=== PATIENT | female | born 1990 ===

== ENCOUNTER 2017-10-23 23:31 | Emergency (ER) | payer BC, OTHER ==
[2017-10-24 00:05] VITALS: BP 120/72; PULSE 86; RESP 16; TEMP 97.3; O2SAT 96
--- NOTE | 2017-10-24 00:25 | EDPHY ---
H & P Time Seen by Provider: 10/23/17 23:54 HPI/ROS: CHIEF COMPLAINT: Pain at rectum with lump HISTORY OF PRESENT ILLNESS: For the last 4 days she noted a mild progressive pain to the right side of the rectum as well as a small area of swelling in the immediate rectal anus. There has been no bleeding. She has longstanding problem with constipation but has noted no bowel movement last 4 days as some comfortable. There has been no fluid drainage or diarrhea. She does recall approximately 4 years ago have an episode of rectal pain diagnosis as a fissure. Once the head settle down it actually never left her. She has had perpetual daily rectal pain without any change in her bowel habit, though constipated, along with no discharge or drainage. She has yet to have a visit with a pelt inspector for this. REVIEW OF SYSTEMS: Constitutional: No weight loss or weight gain. No change in appetite Gastrointestinal: No vomiting, no abdominal pain. There has been no icterus or upper abdominal pain. No diarrhea. Genitourinary: No dysuria frequency. Smoking Status: Never smoked Physical Exam: General Appearance: Alert, no distress. Afebrile. Normal phonation. No respiratory distress. Eyes: Pupils equal and round no pallor or injection. No icterus Abdomen: Soft mild diffusely tender however no hepatic tenderness nor hepatomegaly. While pressing the abdomen there is no increased sensation of pressure or pain at the rectum. She notes that the feels tender as she has not had a bowel movement for several days Rectal: There is a 2 cm external hemorrhoid that is not pedunculated. There is particular tenderness and some slight firmness to this however, there is no breakdown of skin or discharge or bleeding. There is no surrounding erythema or tenderness. Skin: Warm and dry, no rashes. Constitutional: Initial Vital Signs Temperature (C) 36.3 C 10/23/17 23:43 Heart Rate 86 10/23/17 23:43 Respiratory Rate 16 10/23/17 23:43 Blood Pressure 120/72 10/23/17 23:43 O2 Sat (%) 96 10/23/17 23:43 O2 Delivery Mode Room Air Allergies/Adverse Reactions: No Known Allergies Allergy (Verified 02/22/13 11:03) Home Medications: Medication Instructions Recorded Hydrocortisone Acetate [Anucort-Hc] 25 mg RC BID #28 supp.rect 10/24/17 Polyethylene Glycol 3350 [Miralax 17 gm PO DAILY #45 pkt 10/24/17 17 gm (*)] Medical Decision Making ED Course/Re-evaluation: She will be stopping at the drugstore tomorrow to picker tender some the Anusol cream that we prescribed. Also, shows to get started on some MiraLax. Lengthy discussion regarding the softeners verses stimulants, and the appropriate use of the former. 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 It is time and best for her to see a pelt inspector get official consult for management. Differential Diagnosis: Diagnostic considerations include, but are not limited to, the following: Portal hypertension, liver disease, bleeding hemorrhoids, thrombosed hemorrhoids , proctodynia Departure - Departure Disposition: Home, Routine, Self-Care Clinical Impression: Hemorrhoid thrombosis Condition: Good Additional Instructions: Begin MiraLax twice daily until your stools are somewhat runny. Then you may take it once daily for the rest of the month. Time to contact a pelt inspector, see referral. Of course, make sure to go through your insurance network. Anusol HC cream topically apply for 2 weeks twice daily Prescriptions: Hydrocortisone Acetate [Anucort-Hc] 25 mg RC BID #28 supp.rect Polyethylene Glycol 3350 [Miralax 17 gm (*)] 17 gm PO DAILY #45 pkt
== END 2017-10-24 00:28 | disposition home or self-care (01) ==
LOC: CED 23:31
DX: K64.5 Perianal venous thrombosis (principal)